=== PATIENT | male | born 1990 | race Caucasian/White ===

== ENCOUNTER → 2023-11-04 10:50 | Outpatient (REF) | payer BC, OTHER, SELFPAY | LOC: HWRAD 10:50 | PROVIDERS: ATTENDING PHYSICIAN Urology; FAMILY PHYSICIAN Physician Assistant | DX: N31.9 Neuromuscular dysfunction of bladder, unspecified (principal) | CPT/HCPCS: 76770 ==

== ENCOUNTER → 2024-05-26 11:32 | Outpatient (REF) | payer BC, OTHER, SELFPAY | LOC: HWRAD 11:32 | PROVIDERS: ATTENDING PHYSICIAN Urology; FAMILY PHYSICIAN Physician Assistant | DX: N18.4 Chronic kidney disease, stage 4 (severe) (principal) | CPT/HCPCS: 76770 ==